=== PATIENT | female | born 2000 | race Caucasian/White ===

== ENCOUNTER 2023-03-01 10:31 | Outpatient (CLI) | payer OTHER, SELFPAY ==
[2023-03-01 15:43] LABS: Chlamydia DNA Amplified* NOT DETECTED (No Detected); GC DNA Amplified* NOT DETECTED (No Detected)
[2023-03-01 21:14] LABS: Albumin* 5.1 g/dL (3.3-5.0); Chloride* 101 mmol/L (96-114); Potassium* 3.2 mmol/L (3.6-5.1); Sodium* 139 mmol/L (135-149)
[2023-03-01 21:17] LABS: Alanine Aminotransferase* 42 U/L (4-35); Alkaline Phosphatase* 105 U/L (40-150); Aspartate Amino Transferase* 36 U/L (12-35); Bilirubin Total* 1.6 mg/dL (0.1-1.5); Blood Urea Nitrogen* 12 mg/dL (5-24); Calcium* 10.2 mg/dL (8.4-10.6); Carbon Dioxide* 28 mmol/L (20-32); Creatinine* 0.8 mg/dL (0.5-1.5); Estimated Glomerular Filt Rate 105 ml/min; Glucose* 129 mg/dL (60-115); Total Protein* 8.9 g/dL (6.0-8.3)
== END 2023-03-01 10:32 | disposition home or self-care (01) ==
PROVIDERS: Visit Provider Physician Assistant Medical
DX: N91.2 Amenorrhea, unspecified (principal)
CPT/HCPCS: 80053; 84443; 87491; 87591

== ENCOUNTER 2023-04-27 09:56 | Outpatient (CLI) | payer OTHER, SELFPAY | END 2023-04-27 09:57 | disposition home or self-care (01) | PROVIDERS: PCP Physician Assistant Medical; Visit Provider Family Medicine | DX: Z00.00 Encounter for general adult medical examination without abnormal findings (principal); R73.09 Other abnormal glucose; R63.4 Abnormal weight loss; E03.9 Hypothyroidism, unspecified; R63.1 Polydipsia | CPT/HCPCS: 80053; 84443 ==